=== PATIENT | female | born 1980 | race Caucasian/White ===

== ENCOUNTER 2019-12-05 12:12 | Emergency (ER) | payer MEDICAID ==
[~2019-12-05] VITALS: Ht 149.9 cm; Wt 61.8 kg
[~2019-12-05 12:12] MED LIST: HYDR-3237 PO; [UNRECOGNIZED DRUG - REMARK]
[2019-12-05] MEDS ORDERED: METHOCARBAMOL 750 MG TABLET PO ONE (12:30)
[2019-12-05] MEDS ORDERED: KETOROLAC 30 MG/1 ML IM ONE (12:30)
[2019-12-05] MEDS ORDERED: METHOCARBAMOL 750 MG TABLET ONE (12:35)
[2019-12-05] MEDS ORDERED: KETOROLAC 30 MG/1 ML ONE (12:35)
[2019-12-05 13:27] VITALS: BP 125/61
== END 2019-12-05 13:34 | disposition home or self-care (01) ==
LOC: ED 13:32
DX: S39.012A Strain of muscle, fascia and tendon of lower back, initial encounter (principal); S16.1XXA Strain of muscle, fascia and tendon at neck level, initial encounter; S46.911A Strain of unspecified muscle, fascia and tendon at shoulder and upper arm level, right arm, initial encounter; G43.909 Migraine, unspecified, not intractable, without status migrainosus; Z90.710 Acquired absence of both cervix and uterus; Z90.49 Acquired absence of other specified parts of digestive tract; Z90.89 Acquired absence of other organs; X50.0XXA Overexertion from strenuous movement or load, initial encounter; X50.9XXA Other and unspecified overexertion or strenuous movements or postures, initial encounter; Y93.89 Activity, other specified; Y92.098 Other place in other non-institutional residence as the place of occurrence of the external cause; Y99.8 Other external cause status; M54.12 Radiculopathy, cervical region
CPT/HCPCS: 72050; 73030; 96372; 99284; J1885; J7512

== ENCOUNTER 2020-11-19 07:46 | Emergency (ER) | payer MEDICAID ==
[~2020-11-19] VITALS: Ht 149.9 cm; Wt 58.3 kg
[2020-11-19] MEDS ORDERED: LIDOCAINE-MPF 1%, 5ML ONE (08:12)
[2020-11-19] MEDS ORDERED: LIDOCAINE-MPF 1%, 5ML INFIL ONE (08:30)
[2020-11-19 08:31] VITALS: BP 128/57
--- NOTE | 2020-11-19 08:32 | NUR ---
Pt came in with abscess in right forearm. Pt complains of possible UTI. Urine collected.
[2020-11-19 08:54] LABS: MICROSCOPIC INDICATED
[2020-11-19] MEDS ORDERED: FOSFOMYCIN 3 GM PACKET PO ONE (09:30)
[2020-11-19] MEDS ORDERED: FOSFOMYCIN 3 GM PACKET ONE (09:37)
--- NOTE | 2020-11-19 09:45 | NUR ---
Discharge instructions and perscriptions reveiwed with pt. Pt verbalizes understanding and all questions answered at this time.
== END 2020-11-19 10:00 | disposition home or self-care (01) ==
LOC: ED 08:55
DX: L02.413 Cutaneous abscess of right upper limb (principal); N30.00 Acute cystitis without hematuria; G43.909 Migraine, unspecified, not intractable, without status migrainosus; Z90.49 Acquired absence of other specified parts of digestive tract; Z90.710 Acquired absence of both cervix and uterus
CPT/HCPCS: 10060; 81001; 87077; 87086; 87186; 99283

== ENCOUNTER 2021-02-02 22:54 | Emergency (ER) | payer MEDICAID ==
[~2021-02-02] VITALS: Ht 180.3 cm; Wt 66.0 kg
[2021-02-02 23:00] VITALS: BP 121/86
[2021-02-02] MEDS ORDERED: FLUORESCEIN OPHTHALMIC 1 MG STRIP ONE (23:27)
[2021-02-02] MEDS ORDERED: PROPARACAINE OPHTH 0.5%, 15ML ONE (23:27)
[2021-02-02] MEDS ORDERED: PROPARACAINE OPHTH 0.5%, 15ML RIGHTEYE ONE (23:30)
[2021-02-02] MEDS ORDERED: FLUORESCEIN OPHTHALMIC 1 MG STRIP RIGHTEYE ONE (23:30)
--- NOTE | 2021-02-03 00:12 | NUR ---
DISCHARGED PATIENT FOR PRIMARY RN.
== END 2021-02-03 00:13 | disposition home or self-care (01) ==
LOC: ED 23:40
DX: H10.11 Acute atopic conjunctivitis, right eye (principal); H57.11 Ocular pain, right eye; G43.909 Migraine, unspecified, not intractable, without status migrainosus
CPT/HCPCS: 99283